=== PATIENT | female | born 1995 | race Caucasian/White ===

== ENCOUNTER → 2020-07-09 17:10 | Outpatient (CLI) | payer OTHER, SELFPAY ==
[2020-07-09 15:47] VITALS: BMI 25.4
[2020-07-09 18:16] LABS: NATERA MAILED SPECIMEN
[2020-07-14 16:18] LABS: HPV Reflexed? NOT INDICATED
== END ==
PROVIDERS: PCP Family Medicine; Referring Provider Obstetrics & Gynecology; Visit Provider Obstetrics & Gynecology
DX: Z85.3 Personal history of malignant neoplasm of breast (principal)
CPT/HCPCS: 36415; 88175; G0145